=== PATIENT | male | born 1990 | race African-American/Black ===

== ENCOUNTER 2022-08-18 10:39 | Emergency (ER) | payer OTHER | END 2022-08-18 11:24 | disposition home or self-care (01) | LOC: NAV ERS 10:39 | DX: S21.112D Laceration without foreign body of left front wall of thorax without penetration into thoracic cavity, subsequent encounter (principal); W26.0XXD Contact with knife, subsequent encounter ==

== ENCOUNTER 2023-10-17 16:59 | Emergency (ER) | payer MEDICAID ==
[2023-10-17 17:38] LABS: #Basophils 0.2 thou/uL (0.0-0.2); #Eosinphils 0.1 thou/uL (0.0-0.7); #Lymphocytes 1.9 thou/uL (1.20-3.40); #Monocytes 0.5 thou/uL (0.11-0.59); #Neutrophils 3.3 thou/uL (1.40-6.50); %Basophils 2.8 % (0.0-1.0); %Eosinophils 1.4 % (0.0-10.0); %Lymphocytes 32.4 % (21.0-51.0); %Monocytes 7.9 % (0.0-10.0); %Neutrophils 55.6 % (42.0-75.0); Hematocrit 39.9 % (42.0-52.0); Hemoglobin 12.9 g/dL (14.0-18.0); Mean Corpuscular HGB CONC 32.2 g/dL (32.0-36.0); Mean Corpuscular Hemoglobin 31.1 pg (27.0-31.0); Mean Corpuscular Volume 96.6 fl (78.0-98.0); Mean Platelet Volume 6.3 fL (7.4-10.4); Platelet Count 469 10x3/uL (130-400); RBC Distribution Width 12.6 % (11.5-14.5); Red Blood Cell (RBC) Count 4.13 mill/uL (4.70-6.10); White Blood Cell (WBC) Count 5.9 10x3/uL (4.8-10.8)
[2023-10-17 17:39] LABS: ALT (SGPT) 116 U/L (8-55); AST (SGOT) 69 U/L (5-34); Albumin 4.6 g/dL (3.5-5.0); Alkaline Phosphatase 105 U/L (40-110); Anion Gap 29 mmol/L (10-20); BUN (Urea Nitrogen) 11 mg/dL (8.9-20.6); Bilirubin, Total 0.2 mg/dL (0.2-1.2); CK (CPK) 227 U/L (30-200); Calc. Creatinine Clearance 0 mL/min (70-130); Calcium 10.1 mg/dL (7.8-10.44); Chloride 103 mmol/L (98-107); Estimated GFR 60; Globulin 3.7 g/dL (2.4-3.5); Glucose 102 mg/dL (70-105); Potassium 4.1 mmol/L (3.5-5.1); Protein, Total 8.3 g/dL (6.0-8.3); Sodium 137 mmol/L (136-145)
[2023-10-17 17:44] LABS: Carbon Dioxide 9 mmol/L (22-29)
[2023-10-17 18:53] LABS: Bilirubin Negative (Negative); Blood, Urine Trace (Negative); Clarity Clear (Clear); Glucose, Urine (Dipstick) Negative (Negative); Ketone, Urine Negative (Negative); Leukocyte Negative (Negative); Nitrite Negative (Negative); Protein, Urine (Dipstick) 100 mg/dL (Neg-Trace); Urobilinogen 0.2 mg/dL (Less than 2); pH, Urine 5.5 (5.0-9.0)
[2023-10-17 19:00] LABS: CAUTI Indications for Culture Alt mental st,lethar; RBC/HPF None Seen HPF (0-3); Squamous Epithelial 0-3 HPF (0-3); WBC/HPF 0-3 HPF (0-3)
[2023-10-17 19:02] LABS: Acetaminophen Less than 10 mcg/mL (10.0-30.0); Alcohol 85.5 mg/dL (Less than 10); Salicylate Less than 8.0 mg/dL (15.0-30.0)
[2023-10-17 19:03] LABS: Amphetamine Detected (NotDetected); Barbiturates Screen Not Detected (NotDetected); Benzodiazepine Screen Not Detected (NotDetected); Cocaine Metabolite Screen Not Detected (NotDetected); Methadone Not Detected (NotDetected); Methamphetamine Detected (NotDetected); Opiate Screen Not Detected (NotDetected); Oxycodone Screen Not Detected (NotDetected); Phencyclidine (PCP) Not Detected (NotDetected); THC/Cannabinoid Screen Not Detected (NotDetected); Tricyclic Screen Not Detected (NotDetected)
[2023-10-17 20:00] LABS: Anion Gap 20 mmol/L (10-20); BUN (Urea Nitrogen) 9 mg/dL (8.9-20.6); Calc. Creatinine Clearance 0 mL/min (70-130); Calcium 8.9 mg/dL (7.8-10.44); Carbon Dioxide 16 mmol/L (22-29); Chloride 106 mmol/L (98-107); Estimated GFR 86; Glucose 85 mg/dL (70-105)
[2023-10-17 20:01] LABS: Potassium 4.6 mmol/L (3.5-5.1)
[2023-10-17 20:02] LABS: Sodium 137 mmol/L (136-145)
== END 2023-10-17 20:35 ==
LOC: NAV ERS 16:59 → EEVIPCON 16:59 → NAV ERS 20:35
DX: E86.0 Dehydration (principal); E87.20 Acidosis, unspecified; F19.10 Other psychoactive substance abuse, uncomplicated; F17.210 Nicotine dependence, cigarettes, uncomplicated
CPT/HCPCS: 71045; 80053; 80306; 80307; 81001; 82550; 85025; 93005; 96360; 96361